=== PATIENT | male | born 1985 | race African-American/Black ===

== ENCOUNTER 2017-03-27 20:19 | Emergency (ER) | payer SELFPAY ==
[2017-03-27 20:46] LABS: BASOPHILS 0.2 % (0-2); EOSINOPHILS 2.4 % (0-7); HEMATOCRIT 40.4 % (42.0-54.0); IMMATURE GRANULOCYTES 0.8 % (0-5); LYMPHOCYTES 17.4 % (15-50); MCH 29.2 pg (26.0-34.0); MCHC 32.2 g/dL (31.0-37.0); MCV 90.8 fL (80.0-100.0); MEAN PLATELET VOLUME 9.7 fL (7.4-10.4); MONOCYTES 4.1 % (2-11); NEUTROPHILS 75.1 % (40-80); PLATELET COUNT 240 10x3/uL (130-400); RBC 4.45 10x6/uL (4.20-6.10); WBC 12.2 10x3/uL (4.8-10.8)
[2017-03-27 21:01] LABS: ALBUMIN 3.7 g/dL (3.4-5.0); ANION GAP 17.2 mmol/L (8-16); BILIRUBIN - TOTAL 0.2 mg/dL (0.2-1.3); CALCIUM 8.8 mg/dL (8.5-10.1); CREATININE - SERUM 1.8 mg/dL (0.6-1.3); POTASSIUM - SERUM 3.2 mmol/L (3.5-5.1)
== END 2017-03-27 23:05 | disposition home or self-care (01) ==
LOC: D.ER 20:19
PROVIDERS: Emergency Medicine
DX: R41.82 Altered mental status, unspecified (principal); N28.9 Disorder of kidney and ureter, unspecified; I95.9 Hypotension, unspecified; E87.6 Hypokalemia